=== PATIENT | male | born 1995 | race Caucasian/White ===

== ENCOUNTER 2018-10-21 00:40 | Inpatient (IN) | payer BC ==
--- NOTE | 2018-10-21 01:59 | ED ---
Psych HPI - General Source: patient, family Mode of arrival: ambulatory <Arti Joyce - Last Filed: 10/21/18 04:25> <Michell Greene - Last Filed: 10/21/18 04:51> - General Chief Complaint: Psychiatric Symptoms Stated Complaint: Anxiety Time Seen by Provider: 10/21/18 01:13 - History of Present Illness Initial Comments: 23-year-old male with no past medical history presents today for chief complaint of anxiety and feeling as though he is going to . Patient states that he recently went on a cruise with friends to the [facility] and arrived home this past saturday. He states that the entire time him and his friends were drinking heavily. He states when he got to [place] off of the cruise ship began having extreme anxiety. He states he feels like he is going to . He states he has intense anxiety, impeding doom and fear of and dying. He denies taking any drugs. Patient states the symptoms have persisted. Family member in the room father as well as girlfriend states that he appears paranoid. Patient denies any fever, night sweats, denies current headache, dizziness, nausea, vomiting, diarrhea, abdominal pain, chest pain, dyspnea, dyspnea on exertion. Patient appears nontoxic. Patient does appear anxious. Remaining ROS (-), patient denies any recent back pain, muscle weakness, numbness or tingling, dysuria or hematuria, constipation or diarrhea, or visual changes, or any other complaints. (Arti Joyce) - Related Data Allergies Allergy/AdvReac Type Severity Reaction Status Date / Time No Known Allergies Allergy Verified 10/21/18 00:56 Review of Systems ROS Other: All systems not noted in ROS Statement are negative. <Arti Joyce - Last Filed: 10/21/18 04:25> ROS Other: All systems not noted in ROS Statement are negative. <Michell Greene - Last Filed: 10/21/18 04:51> ROS Statement: Those systems with pertinent positive or pertinent negative responses have been documented in the HPI. Past Medical History Past Medical History: No Reported History History of Any Multi-Drug Resistant Organisms: None Reported Past Surgical History: No Surgical Hx Reported Past Psychological History: No Psychological Hx Reported Smoking Status: Never smoker Past Alcohol Use History: Occasional Past Drug Use History: Marijuana <Arti Joyce - Last Filed: 10/21/18 04:25> General Exam Limitations: no limitations <Arti Joyce - Last Filed: 10/21/18 04:25> - General Exam Comments Initial Comments: General: The patient is awake and alert, in no distress, and does not appear ac utely ill. Eye: +3 mm pupils are equal, round and reactive to light, extra-ocular movements are intact. No nystagmus. There is normal conjunctiva bilaterally. No signs of icterus. Ears, nose, mouth and throat: There are moist mucous membranes and no oral lesions. Neck: The neck is supple, there is no tenderness or JVD. Cardiovascular: There is a regular rate and rhythm. No murmur, rub or gallop is appreciated. Respiratory: Lungs are clear to auscultation, respirations are non-labored, breath sounds are equal. No wheezes, stridor, rales, or rhonchi. Gastrointestinal: Soft, non-distended, non-tender abdomen without masses or org anomegaly noted. There is no rebound or guarding present. No CVA tenderness. Bowel sounds are unremarkable. Musculoskeletal: Normal ROM, no tenderness. Strength 5/5. Sensation intact. Radial pulses equal bilaterally 2+. Neurological: A&O x 3. CN II-XII intact, memory intact to immediately, intermediate and long line teamster recall. Able to follow simple verbal. Able to name a common object (pen). High quality, labial (pa) and lingual (la) speech. Low quality posterior pharynx/larynx (ga) voice sounds. Able to express general knowledge (days in a week). No hemineglect or inattention noted. Finger agnosia (-) and spatially oriented (identified L index finger touched R shoulder with L index finger). Light touch and temperature sensation present over the face, chest, abdomen, back, UE bilaterally, and LE bilaterally. Able to localize point during point localization b/l and extinction. No visible bulk atrophy, hypertrophy, fasciculations, or myoclonus of the UE or LE b/l. Full PROM in UE and LE b/l. Bilateral muscle strength 5/5 for the following muscles: deltoid, biceps, triceps, brachioradialis, wrist extensors/flexor, hip flexor, hip a bductors/adductors, hamstrings, quadriceps, feet dorsiflexors/plantar flexors. Finger to nose, finger to the examiners finger, and heel to giordano coordinated and accurate b/l. Coordinated and even demonstration of hand flip, finger to thumb, and toe tap b/l. Gait is coordinated and even in stride.(-) pronator drift. No nuchal rigidity. Skin: Skin is warm and dry and no rashes or lesions are noted. Sun burn on skin. Psychiatric: Cooperative, appropriate mood & affect, normal judgment. (Arti Joyce) Course Vital Signs 10/21/18 00:52 Temperature 98.3 F Pulse Rate 111 H Respiratory 16 Rate Blood Pressure 163/86 O2 Sat by Pulse 100 Oximetry Medical Decision Making - Lab Data Result diagrams: 10/21/18 02:15 10/21/18 02:15 <Arti Joyce - Last Filed: 10/21/18 04:25> - Lab Data Result diagrams: 10/21/18 02:15 10/21/18 02:15 <Michell Greene - Last Filed: 10/21/18 04:51> - Medical Decision Making 23yo males presenting with anxiety, impeding doom. Pt states these symptoms come and go. APpear to be consistent with panic attacks. Pt dehydrated on laboratory studies. Patient given IVF. CK pending, patient case discussed with Dr. Greene at 4:14AM-she will resume patient care. EPS at this point has evaluated patient--no further recommendations currently. Awaiting psychiatry decision making. (Arti Joyce) Patient care was signed out to me by Arti YU, patient with acute anxiety, possible psychosis after binge drinking on a cruise last week. patient evaluated by EPS and agreed to voluntary admission. (Michell Greene) - Lab Data Lab Results 10/21/18 10/21/18 10/21/18 Range/Units 02:15 02:15 02:15 WBC 10.0 (3.8-10.6) k/uL RBC 5.03 (4.30-5.90) m/uL Hgb 15.1 (13.0-17.5) gm/dL Hct 45.3 (39.0-53.0) % MCV 89.9 (80.0-100.0) fL MCH 30.0 (25.0-35.0) pg MCHC 33.4 (31.0-37.0) g/dL RDW 12.4 (11.5-15.5) % Plt Count 248 (150-450) k/uL Neutrophils % 78 % Lymphocytes % 15 % Monocytes % 5 % Eosinophils % 0 % Basophils % 0 % Neutrophils # 7.8 H (1.3-7.7) k/uL Lymphocytes # 1.5 (1.0-4.8) k/uL Monocytes # 0.5 (0-1.0) k/uL Eosinophils # 0.0 (0-0.7) k/uL Basophils # 0.0 (0-0.2) k/uL Sodium 139 (137-145) mmol/L Potassium 3.8 (3.5-5.1) mmol/L Chloride 101 (98-107) mmol/L Carbon Dioxide 25 (22-30) mmol/L Anion Gap 13 mmol/L BUN 14 (9-20) mg/dL Creatinine 0.82 (0.66-1.25) mg/dL Est GFR (CKD-EPI)AfAm >90 (>60 ml/min/1.73 sqM) Est GFR (CKD-EPI)NonAf >90 (>60 ml/min/1.73 sqM) Glucose 89 (74-99) mg/dL Calcium 9.7 (8.4-10.2) mg/dL Total Bilirubin 1.6 H (0.2-1.3) mg/dL AST 43 (17-59) U/L ALT 68 (21-72) U/L Alkaline Phosphatase 86 (38-126) U/L Creatine Kinase (55-170) U/L Troponin I <0.012 (0.000-0.034) ng/mL Total Protein 7.6 (6.3-8.2) g/dL Albumin 4.8 (3.5-5.0) g/dL TSH 2.170 (0.465-4.680) mIU/L Urine Color Urine Appearance (Clear) Urine pH (5.0-8.0) Ur Specific [place] (1.001-1.035) Urine Protein (Negative) Urine Glucose (UA) (Negative) Urine Ketones (Negative) Urine Blood (Negative) Urine Nitrite (Negative) Urine Bilirubin (Negative) Urine Urobilinogen (<2.0) mg/dL Ur Leukocyte Esterase (Negative) Urine Opiates Screen (NotDetected) Ur Oxycodone Screen (NotDetected) Urine Methadone Screen (NotDetected) Ur Propoxyphene Screen (NotDetected) Ur Barbiturates Screen (NotDetected) U Tricyclic Antidepress (NotDetected) Ur Phencyclidine Scrn (NotDetected) Ur Amphetamines Screen (NotDetected) U Methamphetamines Scrn (NotDetected) U Benzodiazepines Scrn (NotDetected) Urine Cocaine Screen (NotDetected) U Marijuana (THC) Screen (NotDetected) 10/21/18 10/21/18 Range/Units 02:15 02:24 WBC (3.8-10.6) k/uL RBC (4.30-5.90) m/uL Hgb (13.0-17.5) gm/dL Hct (39.0-53.0) % MCV (80.0-100.0) fL MCH (25.0-35.0) pg MCHC (31.0-37.0) g/dL RDW (11.5-15.5) % Plt Count (150-450) k/uL Neutrophils % % Lymphocytes % % Monocytes % % Eosinophils % % Basophils % % Neutrophils # (1.3-7.7) k/uL Lymphocytes # (1.0-4.8) k/uL Monocytes # (0-1.0) k/uL Eosinophils # (0-0.7) k/uL Basophils # (0-0.2) k/uL Sodium (137-145) mmol/L Potassium (3.5-5.1) mmol/L Chloride (98-107) mmol/L Carbon Dioxide (22-30) mmol/L Anion Gap mmol/L BUN (9-20) mg/dL Creatinine (0.66-1.25) mg/dL Est GFR (CKD-EPI)AfAm (>60 ml/min/1.73 sqM) Est GFR (CKD-EPI)NonAf (>60 ml/min/1.73 sqM) Glucose (74-99) mg/dL Calcium (8.4-10.2) mg/dL Total Bilirubin (0.2-1.3) mg/dL AST (17-59) U/L ALT (21-72) U/L Alkaline Phosphatase (38-126) U/L Creatine Kinase 348 H (55-170) U/L Troponin I (0.000-0.034) ng/mL Total Protein (6.3-8.2) g/dL Albumin (3.5-5.0) g/dL TSH (0.465-4.680) mIU/L Urine Color Yellow Urine Appearance Clear (Clear) Urine pH 5.5 (5.0-8.0) Ur Specific [place] 1.014 (1.001-1.035) Urine Protein Negative (Negative) Urine Glucose (UA) Negative (Negative) Urine Ketones 3+ H (Negative) Urine Blood Negative (Negative) Urine Nitrite Negative (Negative) Urine Bilirubin Negative (Negative) Urine Urobilinogen <2.0 (<2.0) mg/dL Ur Leukocyte Esterase Negative (Negative) Urine Opiates Screen Not Detected (NotDetected) Ur Oxycodone Screen Not Detected (NotDetected) Urine Methadone Screen Not Detected (NotDetected) Ur Propoxyphene Screen Not Detected (NotDetected) Ur Barbiturates Screen Not Detected (NotDetected) U Tricyclic Antidepress Not Detected (NotDetected) Ur Phencyclidine Scrn Not Detected (NotDetected) Ur Amphetamines Screen Not Detected (NotDetected) U Methamphetamines Scrn Not Detected (NotDetected) U Benzodiazepines Scrn Not Detected (NotDetected) Urine Cocaine Screen Not Detected (NotDetected) U Marijuana (THC) Screen Not Detected (NotDetected) - EKG Data EKG Comments: Ventricular rate 95 bpm, [place] interval 130 ms, QRS duration 96 most seconds, QT/QTC 376/472 ms, this is normal sinus rhythm with premature supraventricular complexes. No ST elevation or depression. No specific T-wave inversion. EKG interpretted by myself as well as Dr. Greene (Arti Joyce) Disposition <Arti Joyce - Last Filed: 10/21/18 04:25> Is patient prescribed a controlled substance at d/c from ED?: No <Greene,Michell P - Last Filed: 10/21/18 04:51> Clinical Impression: Acute anxiety Disposition: TRANSFER TO PSYCH HOSP/UNIT Condition: Stable Referrals: None,Stated [Primary Care Provider] - 1-2 days
[2018-10-21 02:35] LABS: ALT 68 U/L (21-72); AST 43 U/L (17-59); Albumin 4.8 g/dL (3.5-5.0); Alkaline Phosphatase 86 U/L (38-126); Anion Gap 13 mmol/L; Blood Urea Nitrogen 14 mg/dL (9-20); Calcium 9.7 mg/dL (8.4-10.2); Carbon Dioxide 25 mmol/L (22-30); Chloride 101 mmol/L (98-107); Glucose 89 mg/dL (74-99); Potassium 3.8 mmol/L (3.5-5.1); Sodium 139 mmol/L (137-145); Total Bilirubin 1.6 mg/dL (0.2-1.3); Total Protein 7.6 g/dL (6.3-8.2)
[2018-10-21 02:54] LABS: Appearance,Urine Clear (Clear); Bilirubin,Urine Negative (Negative); Blood,Urine Negative (Negative); Color,Urine Yellow; Glucose,Urine (UA) Negative (Negative); Ketones,Urine 3+ (Negative); Leukocyte Esterase,Urine Negative (Negative); Nitrite,Urine Negative (Negative); PH, Urine 5.5 (5.0-8.0); Protein,Urine Negative (Negative); Specific Gravity,Urine 1.014 (1.001-1.035); Urobilinogen,Urine <2.0 mg/dL (<2.0)
[2018-10-21 03:02] LABS: Basophils % (A) 0 %; Eosinophils % (A) 0 %; HCT 45.3 % (39.0-53.0); HGB 15.1 gm/dL (13.0-17.5); Lymphocytes # (A) 1.5 k/uL (1.0-4.8); Lymphocytes % (A) 15 %; MCHC 33.4 g/dL (31.0-37.0); MCV 89.9 fL (80.0-100.0); Mean Platelet Volume 6.8; Monocytes # (A) 0.5 k/uL (0-1.0); Monocytes % (A) 5 %; Neutrophils # (A) 7.8 k/uL (1.3-7.7); Neutrophils % (A) 78 %; Platelet Count 248 k/uL (150-450); RBC 5.03 m/uL (4.30-5.90); RDW 12.4 % (11.5-15.5)
[2018-10-21 03:16] LABS: Amphetamine Screen,Urine Not Detected (NotDetected); Barbiturate Screen,Urine Not Detected (NotDetected); Benzodiazepines Screen,Urine Not Detected (NotDetected); Cocaine Screen,Urine Not Detected (NotDetected); Methadone Screen, Urine Not Detected (NotDetected); Opiate Screen,Urine Not Detected (NotDetected); Oxycodone Screen, Urine Not Detected (NotDetected); Phencyclidine Screen,Urine Not Detected (NotDetected); Tricyclic Antidepressant,Urine Not Detected (NotDetected); Urn Cannabinoid Scrn Not Detected (NotDetected)
[2018-10-21] MEDS ORDERED: SODIUM CHLORIDE 0.9% 1,000 ML IV ONE ×2 (03:52→04:10)
[2018-10-21] MEDS ORDERED: LORazepam 1 MG TAB PO STA (04:50)
[2018-10-21] MEDS ORDERED: MAG HYDROX/AL HYDROX/SIMETH 30 ML CUP PO PRN (05:23)
[2018-10-21] MEDS ORDERED: ZIPRASIDONE 20 MG VIAL IM PRN (05:23)
[2018-10-21 06:50] VITALS: BMI 24.0
[2018-10-21 08:47] LABS: Cholesterol 159 mg/dL (<200); HDL Cholesterol 48 mg/dL (40-60); LDL Cholesterol,Calculated 90 mg/dL (0-99); Triglycerides 106 mg/dL (<150)
--- NOTE | 2018-10-21 10:28 | P.HP ---
Psychiatric H&P - . H&P Date: 10/21/18 History & Physical: Allergies Allergy/AdvReac Type Severity Reaction Status Date / Time No Known Allergies Allergy Verified 10/21/18 06:53 Vital Signs Temp 98.2 F 10/21/18 06:40 Pulse 100 10/21/18 06:40 Resp 20 10/21/18 06:40 BP 131/86 10/21/18 06:40 Pulse Ox 99 10/21/18 06:40 Intake & Output 10/20/18 10/21/18 10/21/18 18:59 06:59 18:59 Weight 78.925 kg Laboratory Last Values WBC 10.0 k/uL (3.8-10.6) 10/21/18 02:15 RBC 5.03 m/uL (4.30-5.90) 10/21/18 02:15 Hgb 15.1 gm/dL (13.0-17.5) 10/21/18 02:15 Hct 45.3 % (39.0-53.0) 10/21/18 02:15 MCV 89.9 fL (80.0-100.0) 10/21/18 02:15 MCH 30.0 pg (25.0-35.0) 10/21/18 02:15 MCHC 33.4 g/dL (31.0-37.0) 10/21/18 02:15 RDW 12.4 % (11.5-15.5) 10/21/18 02:15 Plt Count 248 k/uL (150-450) 10/21/18 02:15 Neutrophils % 78 % 10/21/18 02:15 Lymphocytes % 15 % 10/21/18 02:15 Monocytes % 5 % 10/21/18 02:15 Eosinophils % 0 % 10/21/18 02:15 Basophils % 0 % 10/21/18 02:15 Neutrophils # 7.8 k/uL (1.3-7.7) H 10/21/18 02:15 Lymphocytes # 1.5 k/uL (1.0-4.8) 10/21/18 02:15 Monocytes # 0.5 k/uL (0-1.0) 10/21/18 02:15 Eosinophils # 0.0 k/uL (0-0.7) 10/21/18 02:15 Basophils # 0.0 k/uL (0-0.2) 10/21/18 02:15 Sodium 139 mmol/L (137-145) 10/21/18 02:15 Potassium 3.8 mmol/L (3.5-5.1) 10/21/18 02:15 Chloride 101 mmol/L (98-107) 10/21/18 02:15 Carbon Dioxide 25 mmol/L (22-30) 10/21/18 02:15 Anion Gap 13 mmol/L 10/21/18 02:15 BUN 14 mg/dL (9-20) 10/21/18 02:15 Creatinine 0.82 mg/dL (0.66-1.25) 10/21/18 02:15 Est GFR (CKD-EPI)AfAm >90 (>60 ml/min/1.73 sqM) 10/21/18 02:15 Est GFR (CKD-EPI)NonAf >90 (>60 ml/min/1.73 sqM) 10/21/18 02:15 Glucose 89 mg/dL (74-99) 10/21/18 02:15 Calcium 9.7 mg/dL (8.4-10.2) 10/21/18 02:15 Total Bilirubin 1.6 mg/dL (0.2-1.3) H 10/21/18 02:15 AST 43 U/L (17-59) 10/21/18 02:15 ALT 68 U/L (21-72) 10/21/18 02:15 Alkaline Phosphatase 86 U/L (38-126) 10/21/18 02:15 Creatine Kinase 348 U/L (55-170) H 10/21/18 02:15 Troponin I <0.012 ng/mL (0.000-0.034) 10/21/18 02:15 Total Protein 7.6 g/dL (6.3-8.2) 10/21/18 02:15 Albumin 4.8 g/dL (3.5-5.0) 10/21/18 02:15 Triglycerides 106 mg/dL (<150) 10/21/18 02:15 Cholesterol 159 mg/dL (<200) 10/21/18 02:15 LDL Cholesterol, Calc 90 mg/dL (0-99) 10/21/18 02:15 HDL Cholesterol 48 mg/dL (40-60) 10/21/18 02:15 TSH 2.170 mIU/L (0.465-4.680) 10/21/18 02:15 Urine Color Yellow 10/21/18 02:24 Urine Appearance Clear (Clear) 10/21/18 02:24 Urine pH 5.5 (5.0-8.0) 10/21/18 02:24 Ur Specific [place] 1.014 (1.001-1.035) 10/21/18 02:24 Urine Protein Negative (Negative) 10/21/18 02:24 Urine Glucose (UA) Negative (Negative) 10/21/18 02:24 Urine Ketones 3+ (Negative) H 10/21/18 02:24 Urine Blood Negative (Negative) 10/21/18 02:24 Urine Nitrite Negative (Negative) 10/21/18 02:24 Urine Bilirubin Negative (Negative) 10/21/18 02:24 Urine Urobilinogen <2.0 mg/dL (<2.0) 10/21/18 02:24 Ur Leukocyte Esterase Negative (Negative) 10/21/18 02:24 Urine Opiates Screen Not Detected (NotDetected) 10/21/18 02:24 Ur Oxycodone Screen Not Detected (NotDetected) 10/21/18 02:24 Urine Methadone Screen Not Detected (NotDetected) 10/21/18 02:24 Ur Propoxyphene Screen Not Detected (NotDetected) 10/21/18 02:24 Ur Barbiturates Screen Not Detected (NotDetected) 10/21/18 02:24 U Tricyclic Antidepress Not Detected (NotDetected) 10/21/18 02:24 Ur Phencyclidine Scrn Not Detected (NotDetected) 10/21/18 02:24 Ur Amphetamines Screen Not Detected (NotDetected) 10/21/18 02:24 U Methamphetamines Scrn Not Detected (NotDetected) 10/21/18 02:24 U Benzodiazepines Scrn Not Detected (NotDetected) 10/21/18 02:24 Urine Cocaine Screen Not Detected (NotDetected) 10/21/18 02:24 U Marijuana (THC) Screen Not Detected (NotDetected) 10/21/18 02:24 Assessment and Plan Assessment: 23-year-old male with no past medical history presents today for chief complaint of anxiety and feeling as though he is going to . Patient states that he recently went on a cruise with friends to the [facility] and arrived home this past Saturday. He states that the entire time him and his friends were drinking heavily. He states when he got to [place] off of the cruise ship began having extreme anxiety. He states he feels like he is going to . He states he has intense anxiety, impeding doom and fear of and dying. He denies taking any drugs. Patient states the symptoms have persisted. Family member in the room father as well as girlfriend states that he appears paranoid. Patient denies any fever, night sweats, denies current headache, dizziness, nausea, vomiting, diarrhea, abdominal pain, chest pain, dyspnea, dyspnea on exertion. Patient appears nontoxic. Patient does appear anxious. Remaining ROS (-), patient denies any recent back pain, muscle weakness, numbness or tingling, dysuria or hematuria, constipation or diarrhea, or visual changes, or any other complaints. - Related Data Allergies Allergy/AdvReac Type Severity Reaction Status Date / Time No Known Allergies Allergy Verified 10/21/18 00:56 Past Medical History Past Medical History: No Reported History History of Any Multi-Drug Resistant Organisms: None Reported Past Surgical History: No Surgical Hx Reported Past Psychological History: No Psychological Hx Reported Smoking Status: Never smoker Past Alcohol Use History: Occasional Past Drug Use History: Marijuana Family Mental Health:sister anxiety and sometimes anxiety; whole family drinks alcohol Musculoskeletal Examination - Abnormal/Involuntary Movements: [none] Strength: [greater than antigravity (greater than/equal to 3/5) in all extremities:] Muscle Tone: [no impairment] Gait: [grossly normal Station: [grossly normal Mental Status Examination - this is a pleasant 23-year-old single male who lives with his girlfriend and [facility]. He recently was on a trip on a cruise October 13 worry he drank alcohol excessively and has had problems withdrawn from the alcohol. He states she's always had depression and the alcohol binge did not help his overall mental status. He is actively working and his high school and college grades were A's in nature. 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 He is pleasant to talk to very good historian and unreliable. General Appearance: [ casual, appears stated age Speech/Language: [ slow, hesitant, halting, expressive, soft] Attitude/Behavior: [cooperative] Mood: [ depressed, anxious, elated, irritable, angry, fearful, hopelessness, other] Affect: [full range, labile ] Orientation: [time, person, place situation] Thought Content: [wnl Risk Factors: [thoughts of suicidal (ideations, plan) Perception: [ hallucinations (auditory and visual Thought Processes: [ concrete, circumstantial, tangential] Concentration/Attention Span: [wnl] [Per observation and interview with the patient] Recent Memory: [wnl] [ 3 out of 3 in 3 minutes] Remote Memory: [wnl] [past events, as related history] Intelligence: [ average] [based on history, based on vocabulary, syntax, grammar, and content] Judgement: [ fair] [per patient's behavior/history of present illness] Insight: [ fair] [understanding severity of illness/history of present illness] Admitting Diagnosis: [Major depressive disorder single episode severe in nature; alcohol use disorder severe in nature has now detoxed the last 3 days which is created auditory and visual hallucinations.] Patient Strengths - Personal Skills: [x] Achievements: [x] Steady employment/financial stability: [x] Housing stability: [x] Able to vocalize needs: [x] Values and traditions: [x] Motivation, determination, readiness for change: [x] Setting and pursuing goals, hopes, dreams, aspirations: [x] Resources - social, interpersonal, monetary: [x] Interpersonal relationships and supports available - family, relatives, friends: [x] Cultural/spiritual/rastafari and community involvement: [x] Other: [] Patient Limitations: [medication, non-compliance, pathological/unsupported environment, no interests, intellectual impairment, complicated medical illness, legal issues, lack of social supports, other] Initial Plan of Care: [He is admitted on a formal voluntary to [address] [place] [address]. He will be evaluated by medicine, psychiatry, nursing staff, social work and occupational therapy. He will be placed on 15 minute checks and usual protocol for [facility] therapeutic environment. He'll be included into going to groups and he needs to take his medication as ordered. He'll be started on Effexor 37.5 mg Xr, Lamictal 25 mg, naltrexone 50 mg AT BEDTIME.] Estimated Length of Stay: [5 days] Initial Discharge Plan: [home,referred to therapist, Prognosis: [good] Justification for Inpatient Hospitalization - [Hallucinations, delusions, anxiety, depression resulting in significant loss of functioning.] [Dangerous to self, others, or property with need for controlled environment.] [Emotional or behavioral conditions and complications requiring 24 hour medical and nursing care.] [Need for special drug therapy, or other therapeutic program requiring continuous hospitalization.] [Failure of social or occupational functioning.] [Inability to meet basic life and health needs.] (1) Major depressive disorder Current Visit: Yes Status: Acute Priority: High Code(s): F32.9 - MAJOR DEPRESSIVE DISORDER, SINGLE EPISODE, UNSPECIFIED SNOMED Code(s): 825189709 Time with Patient: Greater than 30
[2018-10-21] MEDS: LORazepam 1 MG TAB PO PRN ×2 (12:12→19:55)
[2018-10-21 15:56] LABS: Hemoglobin A1C 5.3 % (4.0-6.0)
--- NOTE | 2018-10-21 16:12 | P.HPMEDMHU ---
History of Present Illness H&P Date: 10/21/18 Chief Complaint: confusion Patient is a 23 yo CM with no known past medical history who has been admitted to the mental health unit. Asked to evaluate the patient for medical H and P. Patient seen and examined. He denies any recent cough, cold, fever, flu, nausea, vomiting, diarrhea, or constipation. He has not had any dysuria. He states that he was on increased she had and underwent a been drinking episode and then became anxious and was worried he was given dye. He typically does not drink to this level of excess. He did have a [place] that is since resolved. He also reports poor sleep for the last several days. He is having problems falling asleep but not staying asleep. Review of Systems Pertinent positives and negatives as discussed in HPI, a complete review of systems was performed and all other systems are negative. Past Medical History Past Medical History: No Reported History History of Any Multi-Drug Resistant Organisms: None Reported Past Surgical History: No Surgical Hx Reported Past Anesthesia/Blood Transfusion Reactions: No Reported Reaction Smoking Status: Never smoker Past Alcohol Use History: Occasional Past Drug Use History: Marijuana - Past Family History Father Family Medical History: Hypertension grandmother Family Medical History: Diabetes Mellitus Medications and Allergies Home Medications Medication Instructions Recorded Confirmed Type No Known Home Medications 10/21/18 10/21/18 History Allergies Allergy/AdvReac Type Severity Reaction Status Date / Time No Known Allergies Allergy Verified 10/21/18 06:53 Physical Exam Osteopathic Statement: *. No significant issues noted on an osteopathic structural exam other than those noted in the History and Physical/Consult. Vitals: Vital Signs Temp Pulse Pulse Resp BP BP Pulse Ox 10/21/18 06:40 98.2 F 100 20 131/86 99 10/21/18 00:52 98.3 F 111 H 16 163/86 100 Intake and Output 10/21/18 10/21/18 10/21/18 06:59 14:59 22:59 Other: Weight 78.925 kg General: non toxic, no distress, appears at stated age, normal weight Derm: no unusual rashes/lesions no unusual ecchymoses, warm, dry Head: atraumatic, normocephalic, symmetric Eyes: EOMI, no lid lag, anicteric sclera, pupils equal round reactive to light ENT: Nose and ears atraumatic, no thrush, no pharyngeal erythema Neck: No thyromegaly, no cervical lymphadenopathy, trachea midline, supple Mouth: no lip lesion, mucus membranes moist Cardiovascular: S1S2 reg, no murmur, positive posterior tibial pulse bilateral, no edema, capillary refill less than 2 seconds Lungs: CTA bilateral, no rhonchi, no rales , no accessory muscle use Abdominal: soft, nontender to palpation, no guarding, no appreciable organomegaly, normal bowel sounds Ext: no gross muscle atrophy, muscle strength 5 out of 5 in all 4 extremities grossly, no contractures, Neuro: CN II-XI grossly intact, light touch intact all 4 extremities, finger to nose within normal limits, Psych: Alert, oriented, anxious Cranial Nerve Examination - Cranial Nerves Cranial Nerve II- Optic: Intact Cranial Nerve III- Oculomotor: Intact Cranial Nerve IV- Trochlear: Intact Cranial Nerve V- Trigeminal: Intact Cranial Nerve - Abducens: Intact Cranial Nerve VII- Facial: Intact Cranial Nerve VIII- Auditory: Intact Cranial Nerve IX- Glossopharyngeal: Intact Cranial Nerve X- Vagus: Intact Cranial Nerve XI- Accessory: Intact Cranial Nerve XII- Hypoglossal: Intact Results CBC & Chem 7: 10/21/18 02:15 10/21/18 02:15 Labs: Abnormal Lab Results - Last 24 Hours (Table) 10/21/18 10/21/18 10/21/18 Range/Units 02:15 02:15 02:15 Neutrophils # 7.8 H (1.3-7.7) k/uL Total Bilirubin 1.6 H (0.2-1.3) mg/dL Creatine Kinase 348 H (55-170) U/L Urine Ketones (Negative) 10/21/18 Range/Units 02:24 Neutrophils # (1.3-7.7) k/uL Total Bilirubin (0.2-1.3) mg/dL Creatine Kinase (55-170) U/L Urine Ketones 3+ H (Negative) Thrombosis Risk Factor Assmnt - DVT/VTE Prophylaxis DVT/VTE Prophylaxis: Low risk, early ambulation encouraged - Choose All That Apply Any of the Below Risk Factors Present?: No Other Risk Factors: No Other congenital or acquired thrombophilia - If yes, enter type in comment: No Thrombosis Risk Factor Assessment Level: Very Low Risk Assessment and Plan Assessment: Elevated bilirubin, suspect due to recent alcohol ingestion - repeat in AM - if remains elevated consider further eval as outpatient. depression - your psych management Thank you for allowing us to participate in the care of this patient. We will follow peripherally. Do not hesitate to contact us with questions. Someone can be reached from the [facility] hospitalist group at all hours of the day at [phone].
[2018-10-21] MEDS: NALTREXONE HCL 50 MG TAB PO SCH (19:55)
[2018-10-21] MEDS ORDERED: lamoTRIgine 25 MG TAB PO SCH (21:00)
[2018-10-21] MEDS ORDERED: VENLAFAXINE HCL ER 37.5 MG CAP PO SCH (21:00)
[2018-10-22] MEDS: LORazepam 1 MG TAB PO PRN ×2 (07:02→18:54)
[2018-10-22 09:23] LABS: ALT 57 U/L (21-72); AST 34 U/L (17-59); Albumin 4.6 g/dL (3.5-5.0); Alkaline Phosphatase 65 U/L (38-126); Anion Gap 9 mmol/L; Blood Urea Nitrogen 8 mg/dL (9-20); Calcium 9.9 mg/dL (8.4-10.2); Carbon Dioxide 28 mmol/L (22-30); Chloride 104 mmol/L (98-107); Glucose 146 mg/dL (74-99); Potassium 3.7 mmol/L (3.5-5.1); Sodium 141 mmol/L (137-145); Total Protein 7.1 g/dL (6.3-8.2)
--- NOTE | 2018-10-22 12:24 | P.PN ---
Subjective Progress Note Date: 10/22/18 Principal diagnosis: Major depressive disorder single episode severe in nature; alcohol use disorder severe in nature has now detoxed the last 3 days which is created auditory and v isual hallucinations this is a pleasant 23-year-old single male who lives with his girlfriend and [facility]. He recently was on a trip on a cruise October 13 worry he drank alcohol excessively and has had problems withdrawn from the alcohol. He states she's always had depression and the alcohol binge did not help his overall mental status. He is actively working and his high school and college grades were A's in nature. 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 He is pleasant to talk to very good historian and unreliable He was hallucinating on the plan and psychosis. Objective - Vital Signs Vital signs: Vital Signs Temp 98.1 F 10/22/18 06:49 Pulse 53 L 10/22/18 06:49 Resp 18 10/22/18 06:49 BP 139/89 10/22/18 06:49 Pulse Ox 99 10/21/18 06:40 - Labs CBC & Chem 7: 10/21/18 02:15 10/22/18 08:48 Labs: Abnormal Lab Results - Last 24 Hours (Table) 10/22/18 Range/Units 08:48 BUN 8 L (9-20) mg/dL Glucose 146 H (74-99) mg/dL Assessment and Plan Assessment: 23-year-old male with no past medical history presents today for chief complaint of anxiety and feeling as though he is going to . Patient states that he recently went on a cruise with friends to the [facility] and arrived home this past Saturday. He states that the entire time him and his friends were drinking heavily. He states when he got to [place] off of the cruise ship began having extreme anxiety. He states he feels like he is going to . He states he has intense anxiety, impeding doom and fear of and dying. He denies taking any drugs. Patient states the symptoms have persisted. Family member in the room father as well as girlfriend states that he appears paranoid. Patient denies any fever, night sweats, denies current headache, dizziness, nausea, vomiting, diarrhea, abdominal pain, chest pain, dyspnea, dyspnea on exertion. Patient appears nontoxic. Patient does appear anxious. Remaining ROS (-), patient denies any recent back pain, muscle weakness, numbness or tingling, dysuria or hematuria, constipation or diarrhea, or visual changes, or any other complaints. - Related Data Allergies Allergy/AdvReac Type Severity Reaction Status Date / Time No Known Allergies Allergy Verified 10/21/18 00:56 Past Medical History Past Medical History: No Reported History History of Any Multi-Drug Resistant Organisms: None Reported Past Surgical History: No Surgical Hx Reported Past Psychological History: No Psychological Hx Reported Smoking Status: Never smoker Past Alcohol Use History: Occasional Past Drug Use History: Marijuana Family Mental Health:sister anxiety and sometimes anxiety; whole family drinks alcohol Musculoskeletal Examination - Abnormal/Involuntary Movements: [none] Strength: [greater than antigravity (greater than/equal to 3/5) in all extremities:] Muscle Tone: [no impairment] Gait: [grossly normal Station: [grossly normal Mental Status Examination - General Appearance: [ casual, appears stated age Speech/Language: [ slow, hesitant, halting, expressive, soft] Attitude/Behavior: [cooperative] Mood: [ depressed, anxious, elated, irritable, angry, fearful, hopelessness, other] Affect: [full range, labile ] Orientation: [time, person, place situation] Thought Content: [wnl Risk Factors: [thoughts of suicidal-remains suicidal (ideation, plan) Perception: [ hallucinations (auditory and visual Thought Processes: [ concrete, circumstantial, tangential] Concentration/Attention Span: [wnl] [Per observation and interview with the patient] Recent Memory: [wnl] [ 3 out of 3 in 3 minutes] Remote Memory: [wnl] [past events, as related history] Intelligence: [ average] [based on history, based on vocabulary, syntax, grammar, and content] Judgement: [ fair] [per patient's behavior/history of present illness] Insight: [ fair] [understanding severity of illness/history of present illness] Admitting Diagnosis: [Major depressive disorder single episode severe in nature; alcohol use disorder severe in nature has now detoxed the last 3 days which is created auditory and visual hallucinations.] Patient Strengths - Personal Skills: [x] Achievements: [x] Steady employment/financial stability: [x] Housing stability: [x] Able to vocalize needs: [x] Values and traditions: [x] Motivation, determination, readiness for change: [x] Setting and pursuing goals, hopes, dreams, aspirations: [x] Resources - social, interpersonal, monetary: [x] Interpersonal relationships and supports available - family, relatives, friends: [x] Cultural/spiritual/synagogue and community involvement: [x] Other: [] Patient Limitations: [medication, non-compliance, pathological/unsupported environment, no interests, intellectual impairment, complicated medical illness, legal issues, lack of social supports, other] Initial Plan of Care: [He is admitted on a formal voluntary to 3 [facility]. He will be evaluated by medicine, psychiatry, nursing staff, social work and occupational therapy. He will be placed on 15 minute checks and usual protocol for chiang milieu therapeutic environment. He'll be included into going to groups and he needs to take his medication as ordered. He'll be started on Effexor 37.5 mg Xr, Lamictal 25 mg, naltrexone 50 mg AT BEDTIME.] 10/22/2018: increase effexor 75 mg xr; lamictal 75 mg po qhs; add invega 3mg po qhs for psychosis 15 minute checks and usual protocol for the unit. Estimated Length of Stay: [5 days] Initial Discharge Plan: [home,referred to therapist, Prognosis: [good] Justification for Inpatient Hospitalization - [Hallucinations, delusions, anxiety, depression resulting in significant loss of functioning.] [Dangerous to self, others, or property with need for controlled environment.] [Emotional or behavioral conditions and complications requiring 24 hour medical and nursing care.] [Need for special drug therapy, or other therapeutic program requiring continuous hospitalization.] [Failure of social or occupational functioning.] [Inability to meet basic life and health needs.] (1) Major depressive disorder Current Visit: Yes Status: Acute Priority: High Code(s): F32.9 - MAJOR DEPRESSIVE DISORDER, SINGLE EPISODE, UNSPECIFIED SNOMED Code(s): 923634536 Time with Patient: Less than 30
[2018-10-22] MEDS: ACETAMINOPHEN TAB 325 MG TAB PO PRN (17:06)
[2018-10-22] MEDS ORDERED: lamoTRIgine 25 MG TAB PO SCH (21:00)
[2018-10-22] MEDS ORDERED: VENLAFAXINE HCL ER 75 MG CAP PO SCH (21:00)
[2018-10-22] MEDS: PALIPERIDONE 3 MG TAB.ER.24 PO SCH (21:36)
[2018-10-22] MEDS: NALTREXONE HCL 50 MG TAB PO SCH (21:36)
[2018-10-22] MEDS ORDERED: ZIPRASIDONE 20 MG CAP PO STA (22:32)
[2018-10-23] MEDS: LORazepam 1 MG TAB PO PRN ×2 (06:35→16:42)
[2018-10-23 09:30] LABS: ALT 57 U/L (21-72); AST 31 U/L (17-59); Albumin 4.8 g/dL (3.5-5.0); Alkaline Phosphatase 67 U/L (38-126); Anion Gap 11 mmol/L; Blood Urea Nitrogen 6 mg/dL (9-20); Calcium 10.1 mg/dL (8.4-10.2); Carbon Dioxide 30 mmol/L (22-30); Chloride 103 mmol/L (98-107); Glucose 90 mg/dL (74-99); Potassium 3.7 mmol/L (3.5-5.1); Sodium 144 mmol/L (137-145); Total Bilirubin 1.2 mg/dL (0.2-1.3); Total Protein 7.7 g/dL (6.3-8.2)
--- NOTE | 2018-10-23 15:29 | MR ---
EXAMINATION TYPE: MR brain wo/w con DATE OF EXAM: 10/23/2018 COMPARISON: NONE HISTORY: recent acute confusion TECHNIQUE: Multiplanar, multisequence images of the brain and brainstem is performed without and with IV contras t, utilizing 7.5 mL intravenous Gadavist . FINDINGS: Diffusion weighted images demonstrate no evidence of a recent infarct or other diffusion ab normality. There is no extra-axial fluid collection or significant white matter signal abnormality. The ventricular system and cisternal spaces are normal in size and appearance. The brain volume is age appropriate. Midline structures demonstrate normal morphology. The craniocervical junction appears within normal limits. Post contrast images demonstrate no abnormal enhancement. The dural venous sinuses appear pa tent. The visualized sinuses are clear and the globes are intact. IMPRESSION: Unremarkable study. No suspicious finding is seen to account for patient's symptoms.
[2018-10-23] MEDS: VENLAFAXINE HCL ER 150 MG CAP PO SCH (20:24)
[2018-10-23] MEDS: NALTREXONE HCL 50 MG TAB PO SCH (20:24)
[2018-10-23] MEDS: PALIPERIDONE 3 MG TAB.ER.24 PO SCH (20:24)
[2018-10-23] MEDS ORDERED: lamoTRIgine 100 MG TAB PO SCH (21:00)
[2018-10-24] MEDS: LORazepam 1 MG TAB PO PRN ×3 (02:55→21:34)
--- NOTE | 2018-10-24 11:07 | P.PN ---
Subjective Progress Note Date: 10/23/18 Principal diagnosis: Major depressive disorder single episode severe in nature; alcohol use disorder severe in nature has now detoxed the last 3 days which is created auditory and v isual hallucinations this is a pleasant 23-year-old single male who lives with his girlfriend and [facility]. He recently was on a trip on a cruise October 13 worry he drank alcohol excessively and has had problems withdrawn from the alcohol. He states she's always had depression and the alcohol binge did not help his overall mental status. He is actively working and his high school and college grades were A's in nature. 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 He is pleasant to talk to very good historian and unreliable He was hallucinating on the plan and psychosis. Objective - Vital Signs Vital signs: Vital Signs Temp 97.9 F 10/23/18 06:24 Pulse 116 H 10/23/18 06:24 Resp 16 10/23/18 06:24 BP 129/92 10/23/18 06:24 Pulse Ox 99 10/21/18 06:40 - Labs CBC & Chem 7: 10/21/18 02:15 10/23/18 09:08 Labs: Abnormal Lab Results - Last 24 Hours (Table) 10/23/18 Range/Units 09:08 BUN 6 L (9-20) mg/dL Assessment and Plan Assessment: 23-year-old male with no past medical history presents today for chief complaint of anxiety and feeling as though he is going to . Patient states that he recently went on a cruise with friends to the [facility] and arrived home this past Saturday. He states that the entire time him and his friends were drinking heavi ly. He states when he got to [place] off of the cruise ship began having extreme anxiety. He states he feels like he is going to . He states he has intense anxiety, impeding doom and fear of and dying. He denies taking any drugs. Patient states the symptoms have persisted. Family member in the room father as well as girlfriend states that he appears paranoid. Patient denies any fever, night sweats, denies current headache, dizziness, nausea, vomiting, diarrhea, abdominal pain, chest pain, dyspnea, dyspnea on exertion. Patient appears nontoxic. Patient does appear anxious. Remaining ROS (-), patient denies any recent back pain, muscle weakness, numbness or tingling, dysuria or hematuria, constipation or diarrhea, or visual changes, or any other complaints. - Related Data Allergies Allergy/AdvReac Type Severity Reaction Status Date / Time No Known Allergies Allergy Verified 10/21/18 00:56 Past Medical History Past Medical History: No Reported History History of Any Multi-Drug Resistant Organisms: None Reported Past Surgical History: No Surgical Hx Reported Past Psychological History: No Psychological Hx Reported Smoking Status: Never smoker Past Alcohol Use History: Occasional Past Drug Use History: Marijuana Family Mental Health:sister anxiety and sometimes anxiety; whole family drinks alcohol Musculoskeletal Examination - Abnormal/Involuntary Movements: [none] Strength: [greater than antigravity (greater than/equal to 3/5) in all extremities:] Muscle Tone: [no impairment] Gait: [grossly normal Station: [grossly normal Mental Status Examination - General Appearance: [ casual, appears stated age Speech/Language: [ slow, hesitant, halting, expressive, soft] Attitude/Behavior: [cooperative] Mood: [ depressed, anxious, elated, irritable, angry, fearful, hopelessness, other] Affect: [full range, labile ] Orientation: [time, person, place situation] Thought Content: [wnl Risk Factors: [thoughts of suicidal-remains suicidal (ideation, plan) Perception: [ hallucinations (auditory and visual Thought Processes: [ concrete, circumstantial, tangential] Concentration/Attention Span: [wnl] [Per observation and interview with the patient] Recent Memory: [wnl] [ 3 out of 3 in 3 minutes] Remote Memory: [wnl] [past events, as related history] Intelligence: [ average] [based on history, based on vocabulary, syntax, grammar, and content] Judgement: [ fair] [per patient's behavior/history of present illness] Insight: [ fair] [understanding severity of illness/history of present illness] Admitting Diagnosis: [Major depressive disorder single episode severe in nature; alcohol use disorder severe in nature has now detoxed the last 3 days which is created auditory and visual hallucinations.] Patient Strengths - Personal Skills: [x] Achievements: [x] Steady employment/financial stability: [x] Housing stability: [x] Able to vocalize needs: [x] Values and traditions: [x] Motivation, determination, readiness for change: [x] Setting and pursuing goals, hopes, dreams, aspirations: [x] Resources - social, interpersonal, monetary: [x] Interpersonal relationships and supports available - family, relatives, friends: [x] Cultural/spiritual/restoration and community involvement: [x] Other: [] Patient Limitations: [medication, non-compliance, pathological/unsupported environment, no interests, intellectual impairment, complicated medical illness, legal issues, lack of social supports, other] Initial Plan of Care: [He is admitted on a formal voluntary to 3 [facility]. He will be evaluated by medicine, psychiatry, nursing staff, social work and occupational therapy. He will be placed on 15 minute checks and usual protocol for chiang milieu therapeutic environment. He'll be included into going to groups and he needs to take his medication as ordered. He'll be started on Effexor 37.5 mg Xr, Lamictal 25 mg, naltrexone 50 mg AT BEDTIME.] 10/22/2018: increase effexor 75 mg xr; lamictal 75 mg po qhs; add invega 3mg po qhs for psychosis 15 minute checks and usual protocol for the unit. Estimated Length of Stay: [5 days] Initial Discharge Plan: [home,referred to therapist, Prognosis: [good] Justification for Inpatient Hospitalization - [Hallucinations, delusions, anxiety, depression resulting in significant loss of functioning.] [Dangerous to self, others, or property with need for controlled environment.] [Emotional or behavioral conditions and complications requiring 24 hour medical and nursing care.] [Need for special drug therapy, or other therapeutic program requiring continuous hospitalization.] [Failure of social or occupational functioning.] [Inability to meet basic life and health needs.] (1) Major depressive disorder Current Visit: Yes Status: Acute Priority: High Code(s): F32.9 - MAJOR DEPRESSIVE DISORDER, SINGLE EPISODE, UNSPECIFIED SNOMED Code(s): 817321648
--- NOTE | 2018-10-24 14:03 | P.PN ---
Subjective Progress Note Date: 10/24/18 Principal diagnosis: Major depressive disorder single episode severe in nature; alcohol use disorder severe in nature has now detoxed the last 3 days which is created auditory and v isual hallucinations this is a pleasant 23-year-old single male who lives with his girlfriend and [facility]. He recently was on a trip on a cruise October 13 worry he drank alcohol excessively and has had problems withdrawn from the alcohol. He states she's always had depression and the alcohol binge did not help his overall mental status. He is actively working and his high school and college grades were A's in nature. 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 He is pleasant to talk to very good historian and unreliable He was hallucinating on the plan and psychosis. Objective - Vital Signs Vital signs: Vital Signs Temp 97.6 F 10/24/18 03:20 Pulse 153 H 10/24/18 03:20 Resp 20 10/24/18 03:20 BP 139/95 10/24/18 03:20 Pulse Ox 98 10/24/18 03:20 - Labs CBC & Chem 7: 10/21/18 02:15 10/23/18 09:08 Assessment and Plan Assessment: 23-year-old male with no past medical history presents today for chief complaint of anxiety and feeling as though he is going to . Patient states that he rec ently went on a cruise with friends to the [facility] and arrived home this past Saturday. He states that the entire time him and his friends were drinking heavily. He states when he got to [place] off of the cruise ship began having extreme anxiety. He states he feels like he is going to . He states he has intense anxiety, impeding doom and fear of and dying. He denies taking any drugs. Patient states the symptoms have persisted. Family member in the room father as well as girlfriend states that he appears paranoid. Patient denies any fever, night sweats, denies current headache, dizziness, nausea, vomiting, diarrhea, abdominal pain, chest pain, dyspnea, dyspnea on exertion. Patient appears nontoxic. Patient does appear anxious. Remaining ROS (-), patient denies any recent back pain, muscle weakness, numbness or tingling, dysuria or hematuria, constipation or diarrhea, or visual changes, or any other complaints. - Related Data Allergies Allergy/AdvReac Type Severity Reaction Status Date / Time No Known Allergies Allergy Verified 10/21/18 00:56 Past Medical History Past Medical History: No Reported History History of Any Multi-Drug Resistant Organisms: None Reported Past Surgical History: No Surgical Hx Reported Past Psychological History: No Psychological Hx Reported Smoking Status: Never smoker Past Alcohol Use History: Occasional Past Drug Use History: Marijuana Family Mental Health:sister anxiety and sometimes anxiety; whole family drinks alcohol Musculoskeletal Examination - Abnormal/Involuntary Movements: [none] Strength: [greater than antigravity (greater than/equal to 3/5) in all extremities:] Muscle Tone: [no impairment] Gait: [grossly normal Station: [grossly normal Mental Status Examination - General Appearance: [ casual, appears stated age Speech/Language: [ slow, hesitant, halting, expressive, soft] Attitude/Behavior: [cooperative] Mood: [ depressed, anxious, elated, irritable, angry, fearful, hopelessness, other] Affect: [full range, labile ] Orientation: [time, person, place situation] Thought Content: [wnl Risk Factors: [thoughts of suicidal-remains suicidal (ideation, plan) Perception: [ hallucinations (auditory and visual Thought Processes: [ concrete, circumstantial, tangential] Concentration/Attention Span: [wnl] [Per observation and interview with the patient] Recent Memory: [wnl] [ 3 out of 3 in 3 minutes] Remote Memory: [wnl] [past events, as related history] Intelligence: [ average] [based on history, based on vocabulary, syntax, grammar, and content] Judgement: [ fair] [per patient's behavior/history of present illness] Insight: [ fair] [understanding severity of illness/history of present illness] Admitting Diagnosis: [Major depressive disorder single episode severe in nature; alcohol use disorder severe in nature has now detoxed the last 3 days which is created auditory and visual hallucinations.] Patient Strengths - Personal Skills: [x] Achievements: [x] Steady employment/financial stability: [x] Housing stability: [x] Able to vocalize needs: [x] Values and traditions: [x] Motivation, determination, readiness for change: [x] Setting and pursuing goals, hopes, dreams, aspirations: [x] Resources - social, interpersonal, monetary: [x] Interpersonal relationships and supports available - family, relatives, friends: [x] Cultural/spiritual/presybeterian and community involvement: [x] Other: [] Patient Limitations: [medication, non-compliance, pathological/unsupported environment, no interests, intellectual impairment, complicated medical illness, legal issues, lack of social supports, other] Initial Plan of Care: [He is admitted on a formal voluntary to 3 [facility]. He will be evaluated by medicine, psychiatry, nursing staff, social work and occupational therapy. He will be placed on 15 minute checks and usual protocol for chiang milieu therapeutic environment. He'll be included into going to groups and he needs to take his medication as ordered. He'll be started on Effexor 37.5 mg Xr, Lamictal 25 mg, naltrexone 50 mg AT BEDTIME.] 10/22/2018: increase effexor 75 mg xr; lamictal 75 mg po qhs; add invega 3mg po qhs for psychosis 15 minute checks and usual protocol for the unit. 10/24/2018: Increase invega 6 mg po qhs and 1 hour family meeting Estimated Length of Stay: [5 days] Initial Discharge Plan: [home,referred to therapist, Prognosis: [good] (1) Major depressive disorder Current Visit: Yes Status: Acute Priority: High Code(s): F32.9 - MAJOR DEPRESSIVE DISORDER, SINGLE EPISODE, UNSPECIFIED SNOMED Code(s): 715443646 Time with Patient: Greater than 30
[2018-10-24] MEDS: MAGNESIUM HYDROXIDE 2,400 MG/10 ML CUP PO PRN (14:45)
--- NOTE | 2018-10-24 17:08 | P.PN ---
Progress Note - Text Progress Note Date: 10/24/18 As per nursing reports, patient last night presented to nursing station feeling anxious and restless. Patient admitted to feeling anxious and requested "a pill" to help him calm down. Patient would focus on one topic and continue to ask questions regarding that topic until redirected to another one from staff. Patient verbalized that he feels like he is going to because he used alcohol and that God is punishing him. Patient was observed pacing the hallway and holding his bible in his hands. Patient kept repeating to staff that he does not want to . Patient's pulse was taken in the 150's. Stat EKG was ordered which shows sinus tachycardia with frequent PVCs. This case was discussed with nursing today around 5 PM. Nursing reports that the patient's anxiety has subsided and patient has returned to baseline. The EKG performed was reviewed and showed sinus tachycardia with frequent PVCs, which can be seen in anxiety. Patient has a similar EKG from 10/21/2018. His symptoms were relieved with Ativan, which points towards anxiety causing his symptoms. At this time, patient had a SBP in the 140s and pulse was 114. Patient appeared calm as per RN and did not have any further episodes of anxiousness and restlessness with paranoia. We will continue to monitor the patient. Please contact us for any changes in mentation, for any chest pain/shortness of breath/palpitations/dizziness, or changes in vitals.
[2018-10-24] MEDS: VENLAFAXINE HCL ER 150 MG CAP PO SCH (20:37)
[2018-10-24] MEDS: lamoTRIgine 100 MG TAB PO SCH (20:37)
[2018-10-24] MEDS: NALTREXONE HCL 50 MG TAB PO SCH (20:37)
[2018-10-24] MEDS ORDERED: PALIPERIDONE 6 MG TAB.ER.24 PO SCH (21:00)
[2018-10-25] MEDS: LORazepam 1 MG TAB PO PRN ×3 (03:19→22:32)
[2018-10-25] MEDS: MAGNESIUM HYDROXIDE 2,400 MG/10 ML CUP PO PRN (15:23)
--- NOTE | 2018-10-25 15:36 | P.PN ---
Subjective Progress Note Date: 10/25/18 Principal diagnosis: Major depressive disorder single episode severe in nature; alcohol use disorder severe in nature has now detoxed the last 3 days which is created auditory and v isual hallucinations this is a pleasant 23-year-old single male who lives with his girlfriend and [facility]. He recently was on a trip on a cruise October 13 worry he drank alcohol excessively and has had problems withdrawn from the alcohol. He states she's always had depression and the alcohol binge did not help his overall mental status. He is actively working and his high school and college grades were A's in nature. 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 He is pleasant to talk to very good historian and unreliable He was hallucinating on the plan and psychosis. Objective - Vital Signs Vital signs: Vital Signs Temp 97.7 F 10/25/18 03:12 Pulse 116 H 10/25/18 11:07 Resp 16 10/25/18 03:12 BP 141/91 10/25/18 11:07 Pulse Ox 98 10/24/18 03:20 - Labs CBC & Chem 7: 10/21/18 02:15 10/23/18 09:08 Assessment and Plan Assessment: 23-year-old male with no past medical history presents today for chief complaint of anxiety and feeling as though he is going to . Patient states that he rec ently went on a cruise with friends to the [facility] and arrived home this past Saturday. He states that the entire time him and his friends were drinking heavily. He states when he got to [place] off of the cruise ship began having extreme anxiety. He states he feels like he is going to . He states he has intense anxiety, impeding doom and fear of and dying. He denies taking any drugs. Patient states the symptoms have persisted. Family member in the room father as well as girlfriend states that he appears paranoid. Patient denies any fever, night sweats, denies current headache, dizziness, nausea, vomiting, diarrhea, abdominal pain, chest pain, dyspnea, dyspnea on exertion. Patient appears nontoxic. Patient does appear anxious. Remaining ROS (-), patient denies any recent back pain, muscle weakness, numbness or tingling, dysuria or hematuria, constipation or diarrhea, or visual changes, or any other complaints. - Related Data Allergies Allergy/AdvReac Type Severity Reaction Status Date / Time No Known Allergies Allergy Verified 10/21/18 00:56 Past Medical History Past Medical History: No Reported History History of Any Multi-Drug Resistant Organisms: None Reported Past Surgical History: No Surgical Hx Reported Past Psychological History: No Psychological Hx Reported Smoking Status: Never smoker Past Alcohol Use History: Occasional Past Drug Use History: Marijuana Family Mental Health:sister anxiety and sometimes anxiety; whole family drinks alcohol Musculoskeletal Examination - Abnormal/Involuntary Movements: [none] Strength: [greater than antigravity (greater than/equal to 3/5) in all extremities:] Muscle Tone: [no impairment] Gait: [grossly normal Station: [grossly normal Mental Status Examination - General Appearance: [ casual, appears stated age Speech/Language: [ slow, hesitant, halting, expressive, soft] Attitude/Behavior: [cooperative] Mood: [ depressed, anxious, elated, irritable, angry, fearful, hopelessness, other] Affect: [full range, labile ] Orientation: [time, person, place situation] Thought Content: [wnl Risk Factors: [thoughts of suicidal-remains suicidal (ideation, plan) Perception: [ hallucinations (auditory and visual Thought Processes: [ concrete, circumstantial, tangential] Concentration/Attention Span: [wnl] [Per observation and interview with the patient] Recent Memory: [wnl] [ 3 out of 3 in 3 minutes] Remote Memory: [wnl] [past events, as related history] Intelligence: [ average] [based on history, based on vocabulary, syntax, grammar, and content] Judgement: [ fair] [per patient's behavior/history of present illness] Insight: [ fair] [understanding severity of illness/history of present illness] Admitting Diagnosis: [Major depressive disorder single episode severe in nature; alcohol use disorder severe in nature has now detoxed the last 3 days which is created auditory and visual hallucinations.] Patient Strengths - Personal Skills: [x] Achievements: [x] Steady employment/financial stability: [x] Housing stability: [x] Able to vocalize needs: [x] Values and traditions: [x] Motivation, determination, readiness for change: [x] Setting and pursuing goals, hopes, dreams, aspirations: [x] Resources - social, interpersonal, monetary: [x] Interpersonal relationships and supports available - family, relatives, friends: [x] Cultural/spiritual/sabianism and community involvement: [x] Other: [] Patient Limitations: [medication, non-compliance, pathological/unsupported environment, no interests, intellectual impairment, complicated medical illness, legal issues, lack of social supports, other] Initial Plan of Care: [He is admitted on a formal voluntary to [address] [place] [address]. He will be evaluated by medicine, psychiatry, nursing staff, social work and occupational therapy. He will be placed on 15 minute checks and usual protocol for chiang milieu therapeutic environment. He'll be included into going to groups and he needs to take his medication as ordered. He'll be started on Effexor 37.5 mg Xr, Lamictal 25 mg, naltrexone 50 mg AT BEDTIME.] 10/22/2018: increase effexor 75 mg xr; lamictal 75 mg po qhs; add invega 3mg po qhs for psychosis 15 minute checks and usual protocol for the unit. 10/24/2018: Increase invega 6 mg po qhs and 1 hour family meeting Estimated Length of Stay: [5 days] Initial Discharge Plan: [home,referred to therapist, Prognosis: [good] (1) Major depressive disorder Current Visit: Yes Status: Acute Priority: High Code(s): F32.9 - MAJOR DEPRESSIVE DISORDER, SINGLE EPISODE, UNSPECIFIED SNOMED Code(s): 213852261
[2018-10-25] MEDS: NALTREXONE HCL 50 MG TAB PO SCH (20:58)
[2018-10-25] MEDS: lamoTRIgine 100 MG TAB PO SCH (20:58)
[2018-10-25] MEDS: cloNIDine HCL 0.1 MG TAB PO SCH (20:59)
[2018-10-25] MEDS ORDERED: PALIPERIDONE 3 MG TAB.ER.24 PO SCH (21:00)
[2018-10-25] MEDS ORDERED: VENLAFAXINE HCL ER 75 MG CAP PO SCH (21:00)
[2018-10-26] MEDS: cloNIDine HCL 0.1 MG TAB PO SCH ×2 (08:43→20:08)
--- NOTE | 2018-10-26 12:02 | P.PN ---
Subjective Progress Note Date: 10/26/18 Principal diagnosis: Major depressive disorder single episode severe in nature; alcohol use disorder severe in nature has now detoxed the last 3 days which is created auditory and v isual hallucinations this is a pleasant 23-year-old single male who lives with his girlfriend and [facility]. He recently was on a trip on a cruise October 13 worry he drank alcohol excessively and has had problems withdrawn from the alcohol. He states she's always had depression and the alcohol binge did not help his overall mental status. He is actively working and his high school and college grades were A's in nature. 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 He is pleasant to talk to very good historian and unreliable He was hallucinating on the plan and psychosis. 10/26/2018: less fear and less ruminating, not suicidal Objective - Vital Signs Vital signs: Vital Signs Temp 98.5 F 10/26/18 06:19 Pulse 120 H 10/26/18 08:40 Resp 18 10/26/18 06:19 BP 126/76 10/26/18 08:40 Pulse Ox 98 10/24/18 03:20 Intake & Output 10/25/18 10/26/18 10/26/18 18:59 06:59 18:59 Weight 79.832 kg - Labs CBC & Chem 7: 10/21/18 02:15 10/23/18 09:08 Assessment and Plan Assessment: 23-year-old male with no past medical history presents today for chief complaint of anxiety and feeling as though he is going to . Patient states that he recently went on a cruise with friends to the [facility] and arrived home this past Saturday. He states that the entire time him and his friends were drinking heavily. He states when he got to [place] off of the cruise ship began having extreme anxiety. He states he feels like he is going to . He states he has intense anxiety, impeding doom and fear of and dying. He denies taking any drugs. Patient states the symptoms have persisted. Family member in the room father as well as girlfriend states that he appears paranoid. Patient denies any fever, night sweats, denies current headache, dizziness, nausea, vomiting, diarrhea, abdominal pain, chest pain, dyspnea, dyspnea on exertion. Patient appears nontoxic. Patient does appear anxious. Remaining ROS (-), patient denies any recent back pain, muscle weakness, numbness or tingling, dysuria or hematuria, constipation or diarrhea, or visual changes, or any other complaints. - Related Data Allergies Allergy/AdvReac Type Severity Reaction Status Date / Time No Known Allergies Allergy Verified 10/21/18 00:56 Past Medical History Past Medical History: No Reported History History of Any Multi-Drug Resistant Organisms: None Reported Past Surgical History: No Surgical Hx Reported Past Psychological History: No Psychological Hx Reported Smoking Status: Never smoker Past Alcohol Use History: Occasional Past Drug Use History: Marijuana Family Mental Health:sister anxiety and sometimes anxiety; whole family drinks alcohol Musculoskeletal Examination - Abnormal/Involuntary Movements: [none] Strength: [greater than antigravity (greater than/equal to 3/5) in all extre mities:] Muscle Tone: [no impairment] Gait: [grossly normal Station: [grossly normal Mental Status Examination - General Appearance: [ casual, appears stated age Speech/Language: [ slow, hesitant, halting, expressive, soft] Attitude/Behavior: [cooperative] Mood: [ depressed, anxious, elated, irritable, angry, fearful, hopelessness, other] Affect: [full range, labile ] Orientation: [time, person, place situation] Thought Content: [wnl Risk Factors: [thoughts of suicidal-remains suicidal (ideation, plan) Perception: [ hallucinations (auditory and visual Thought Processes: [ concrete, circumstantial, tangential] Concentration/Attention Span: [wnl] [Per observation and interview with the patient] Recent Memory: [wnl] [ 3 out of 3 in 3 minutes] Remote Memory: [wnl] [past events, as related history] Intelligence: [ average] [based on history, based on vocabulary, syntax, grammar, and content] Judgement: [ fair] [per patient's behavior/history of present illness] Insight: [ fair] [understanding severity of illness/history of present illness] Admitting Diagnosis: [Major depressive disorder single episode severe in nature; alcohol use disorder severe in nature has now detoxed the last 3 days which is created auditory and visual hallucinations.] Patient Strengths - Personal Skills: [x] Achievements: [x] Steady employment/financial stability: [x] Housing stability: [x] Able to vocalize needs: [x] Values and traditions: [x] Motivation, determination, readiness for change: [x] Setting and pursuing goals, hopes, dreams, aspirations: [x] Resources - social, interpersonal, monetary: [x] Interpersonal relationships and supports available - family, relatives, friends: [x] Cultural/spiritual/sabianist and community involvement: [x] Other: [] Patient Limitations: [medication, non-compliance, pathological/unsupported environment, no interests, intellectual impairment, complicated medical illness, legal issues, lack of social supports, other] Initial Plan of Care: [[facility] He will be evaluated by medicine, psychiatry, nursing staff, social work and occupational therapy. He will be placed on 15 minute checks and usual protocol for chiang milieu therapeutic environment. He'll be included into going to groups and he needs to take his medication as ordered. He'll be started on Effexor 37.5 mg Xr, Lamictal 25 mg, naltrexone 50 mg AT BEDTIME.] 10/22/2018: increase effexor 75 mg xr; lamictal 75 mg po qhs; add invega 3mg po qhs for psychosis 15 minute checks and usual protocol for the unit. 10/24/2018: Increase invega 6 mg po qhs and 1 hour family meeting 10/25/2018; increase invega 9 mg and increase effexor 225 mg XR 11/05/2018: Increase invega 12 mg and increase effexor 300 mg XR Estimated Length of Stay: [3 days] Initial Discharge Plan: [home,referred to therapist, Prognosis: [good] (1) Major depressive disorder Current Visit: Yes Status: Acute Priority: High Code(s): F32.9 - MAJOR DEPRESSIVE DISORDER, SINGLE EPISODE, UNSPECIFIED SNOMED Code(s): 560260248 Time with Patient: Less than 30
[2018-10-26] MEDS: LORazepam 1 MG TAB PO PRN (12:09)
[2018-10-26] MEDS: MAGNESIUM HYDROXIDE 2,400 MG/10 ML CUP PO PRN ×2 (12:09→20:54)
[2018-10-26] MEDS: lamoTRIgine 100 MG TAB PO SCH (20:07)
[2018-10-26] MEDS: PALIPERIDONE 6 MG TAB.ER.24 PO SCH (20:07)
[2018-10-26] MEDS: VENLAFAXINE HCL ER 150 MG CAP PO SCH (20:07)
[2018-10-26] MEDS: NALTREXONE HCL 50 MG TAB PO SCH (20:08)
[2018-10-27] MEDS: LORazepam 1 MG TAB PO PRN (07:14)
[2018-10-27] MEDS: cloNIDine HCL 0.1 MG TAB PO SCH (07:55)
--- NOTE | 2018-10-27 12:24 | P.PN ---
Subjective Progress Note Date: 10/27/18 Principal diagnosis: Major depressive disorder single episode severe in nature; alcohol use disorder severe in nature has now detoxed the last 3 days which is created auditory and v isual hallucinations this is a pleasant 23-year-old single male who lives with his girlfriend and [facility]. He recently was on a trip on a cruise October 13 worry he drank alcohol excessively and has had problems withdrawn from the alcohol. He states she's always had depression and the alcohol binge did not help his overall mental status. He is actively working and his high school and college grades were A's in nature. 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 He is pleasant to talk to very good historian and unreliable He was hallucinating on the plan and psychosis. 10/26/2018: less fear and less ruminating, not suicidal 10/27/2018: Less depressed and not suicidal; memory returning Objective - Vital Signs Vital signs: Vital Signs Temp 97.8 F 10/27/18 06:45 Pulse 107 H 10/27/18 07:56 Resp 18 10/27/18 07:56 BP 107/60 10/27/18 07:56 Pulse Ox 98 10/24/18 03:20 Intake & Output 10/26/18 10/27/18 10/27/18 18:59 06:59 18:59 Weight 79.832 kg - Labs CBC & Chem 7: 10/21/18 02:15 10/23/18 09:08 Assessment and Plan Assessment: 23-year-old male with no past medical history presents today for chief complaint of anxiety and feeling as though he is going to . Patient states that he recently went on a cruise with friends to the [facility] and arrived home this past Saturday. He states that the entire time him and his friends were drinking heavily. He states when he got to [place] off of the cruise ship began having extreme anxiety. He states he feels like he is going to . He states he has intense anxiety, impeding doom and fear of and dying. He denies taking any drugs. Patient states the symptoms have persisted. Family member in the room father as well as girlfriend states that he appears paranoid. Patient denies any fever, night sweats, denies current headache, dizziness, nausea, vomiting, diarrhea, abdominal pain, chest pain, dyspnea, dyspnea on exertion. Patient appears nontoxic. Patient does appear anxious. Remaining ROS (-), patient denies any recent back pain, muscle weakness, numbness or tingling, dysuria or hematuria, constipation or diarrhea, or visual changes, or any other complaints. - Related Data Allergies Allergy/AdvReac Type Severity Reaction Status Date / Time No Known Allergies Allergy Verified 10/21/18 00:56 Past Medical History Past Medical History: No Reported History History of Any Multi-Drug Resistant Organisms: None Reported Past Surgical History: No Surgical Hx Reported Past Psychological History: No Psychological Hx Reported Smoking Status: Never smoker Past Alcohol Use History: Occasional Past Drug Use History: Marijuana Family Mental Health:sister anxiety and sometimes anxiety; whole family drinks alcohol Musculoskeletal Examination - Abnormal/Involuntary Movements: [none] Strength: [greater than antigravity (greater than/equal to 3/5) in all extremities:] Muscle Tone: [no impairment] Gait: [grossly normal Station: [grossly normal Mental Status Examination - General Appearance: [ casual, appears stated age Speech/Language: [ slow, hesitant, halting, expressive, soft] Attitude/Behavior: [cooperative] Mood: [ depressed, anxious, elated, irritable, angry, fearful, hopelessness, other] Affect: [full range, labile ] Orientation: [time, person, place situation] Thought Content: [wnl Risk Factors: [thoughts of suicidal-remains suicidal (ideation, plan) Perception: [ hallucinations (auditory and visual Thought Processes: [ concrete, circumstantial, tangential] Concentration/Attention Span: [wnl] [Per observation and interview with the patient] Recent Memory: [wnl] [ 3 out of 3 in 3 minutes] Remote Memory: [wnl] [past events, as related history] Intelligence: [ average] [based on history, based on vocabulary, syntax, grammar, and content] Judgement: [ fair] [per patient's behavior/history of present illness] Insight: [ fair] [understanding severity of illness/history of present illness] Admitting Diagnosis: [Major depressive disorder single episode severe in nature; alcohol use disorder severe in nature has now detoxed the last 3 days which is created auditory and visual hallucinations.] Patient Strengths - Personal Skills: [x] Achievements: [x] Steady employment/financial stability: [x] Housing stability: [x] Able to vocalize needs: [x] Values and traditions: [x] Motivation, determination, readiness for change: [x] Setting and pursuing goals, hopes, dreams, aspirations: [x] Resources - social, interpersonal, monetary: [x] Interpersonal relationships and supports available - family, relatives, friends: [x] Cultural/spiritual/mandaeism and community involvement: [x] Other: [] Patient Limitations: [medication, non-compliance, pathological/unsupported environment, no interests, intellectual impairment, complicated medical illness, legal issues, lack of social supports, other] Initial Plan of Care: [He is admitted on a formal voluntary to 3 [facility]. He will be evaluated by medicine, psychiatry, nursing staff, social work and occupational therapy. He will be placed on 15 minute checks and usual protocol for chiang milieu therapeutic environment. He'll be included into going to groups and he needs to take his medication as ordered. He'll be started on Effexor 37.5 mg Xr, Lamictal 25 mg, naltrexone 50 mg AT BEDTIME.] 10/22/2018: increase effexor 75 mg xr; lamictal 75 mg po qhs; add invega 3mg po qhs for psychosis 15 minute checks and usual protocol for the unit. 10/24/2018: Increase invega 6 mg po qhs and 1 hour family meeting 10/25/2018; increase invega 9 mg and increase effexor 225 mg XR 10/26/2018: Increase invega 12 mg and increase effexor 300 mg XR 10/27/2018: Add claritan and keep the rest of medications at same; 15 minutes checks Estimated Length of Stay: [2 days] Initial Discharge Plan: [home,referred to therapist, Prognosis: [good] (1) Major depressive disorder Current Visit: Yes Status: Acute Priority: High Code(s): F32.9 - MAJOR DEPRESSIVE DISORDER, SINGLE EPISODE, UNSPECIFIED SNOMED Code(s): 989556901 Time with Patient: Less than 30
[2018-10-27] MEDS: LORATADINE 10 MG TAB PO SCH (20:58)
[2018-10-27] MEDS: lamoTRIgine 100 MG TAB PO SCH (20:58)
[2018-10-27] MEDS: cloNIDine HCL 0.2 MG TAB PO SCH (20:58)
[2018-10-27] MEDS: NALTREXONE HCL 50 MG TAB PO SCH (20:59)
[2018-10-27] MEDS: VENLAFAXINE HCL ER 150 MG CAP PO SCH (20:59)
[2018-10-27] MEDS: PALIPERIDONE 6 MG TAB.ER.24 PO SCH (20:59)
[2018-10-28] MEDS: LORazepam 1 MG TAB PO PRN (00:03)
[2018-10-28] MEDS: LORATADINE 10 MG TAB PO SCH ×2 (07:49→20:32)
[2018-10-28] MEDS: cloNIDine HCL 0.2 MG TAB PO SCH ×2 (07:50→20:33)
--- NOTE | 2018-10-28 11:14 | P.PN ---
Subjective Progress Note Date: 10/28/18 Principal diagnosis: Major depressive disorder single episode severe in nature; alcohol use disorder severe in nature has now detoxed the last 3 days which is created auditory and v isual hallucinations this is a pleasant 23-year-old single male who lives with his girlfriend and [facility]. He recently was on a trip on a cruise October 13 worry he drank alcohol excessively and has had problems withdrawn from the alcohol. He states she's always had depression and the alcohol binge did not help his overall mental status. He is actively working and his high school and college grades were A's in nature. 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 He is pleasant to talk to very good historian and unreliable He was hallucinating on the plan and psychosis. 10/26/2018: less fear and less ruminating, not suicidal 10/27/2018: Less depressed and not suicidal; memory returning 10/28/2017 paranoid of peer who is anabaptism and scares client. Objective - Vital Signs Vital signs: Vital Signs Temp 98.5 F 10/28/18 00:05 Pulse 125 H 10/28/18 07:50 Resp 18 10/28/18 00:05 BP 138/85 10/28/18 07:50 Pulse Ox 98 10/24/18 03:20 - Labs CBC & Chem 7: 10/21/18 02:15 10/23/18 09:08 Assessment and Plan Assessment: 23-year-old male with no past medical history presents today for chief complaint of anxiety and feeling as though he is going to . Patient states that he recently went on a cruise with friends to the [facility] and arrived home this past Saturday. He states that the entire time him and his friends were drinking heavily. He states when he got to [place] off of the cruise ship began having extreme anxiety. He states he feels like he is going to . He states he has intense anxiety, impeding doom and fear of and dying. He denies taking any drugs. Patient states the symptoms have persisted. Family member in the room father as well as girlfriend states that he appears paranoid. Patient denies any fever, night sweats, denies current headache, dizziness, nausea, v omiting, diarrhea, abdominal pain, chest pain, dyspnea, dyspnea on exertion. Patient appears nontoxic. Patient does appear anxious. Remaining ROS (-), patient denies any recent back pain, muscle weakness, numbness or tingling, dysuria or hematuria, constipation or diarrhea, or visual changes, or any other complaints. - Related Data Allergies Allergy/AdvReac Type Severity Reaction Status Date / Time No Known Allergies Allergy Verified 10/21/18 00:56 Past Medical History Past Medical History: No Reported History History of Any Multi-Drug Resistant Organisms: None Reported Past Surgical History: No Surgical Hx Reported Past Psychological History: No Psychological Hx Reported Smoking Status: Never smoker Past Alcohol Use History: Occasional Past Drug Use History: Marijuana Family Mental Health:sister anxiety and sometimes anxiety; whole family drinks alcohol Musculoskeletal Examination - Abnormal/Involuntary Movements: [none] Strength: [greater than antigravity (greater than/equal to 3/5) in all extremities:] Muscle Tone: [no impairment] Gait: [grossly normal Station: [grossly normal Mental Status Examination - General Appearance: [ casual, appears stated age Speech/Language: [ slow, hesitant, halting, expressive, soft] Attitude/Behavior: [cooperative] Mood: [ depressed, anxious, elated, irritable, angry, fearful, hopelessness, other] Affect: [full range, labile ] Orientation: [time, person, place situation] Thought Content: [wnl Risk Factors: [thoughts of suicidal-remains suicidal (ideation, plan) Perception: [ hallucinations (auditory and visual Thought Processes: [ concrete, circumstantial, tangential] Concentration/Attention Span: [wnl] [Per observation and interview with the patient] Recent Memory: [wnl] [ 3 out of 3 in 3 minutes] Remote Memory: [wnl] [past events, as related history] Intelligence: [ average] [based on history, based on vocabulary, syntax, grammar, and content] Judgement: [ fair] [per patient's behavior/history of present illness] Insight: [ fair] [understanding severity of illness/history of present illness] Admitting Diagnosis: [Major depressive disorder single episode severe in nature; alcohol use disorder severe in nature has now detoxed the last 3 days which is created auditory and visual hallucinations.] Patient Strengths - Personal Skills: [x] Achievements: [x] Steady employment/financial stability: [x] Housing stability: [x] Able to vocalize needs: [x] Values and traditions: [x] Motivation, determination, readiness for change: [x] Setting and pursuing goals, hopes, dreams, aspirations: [x] Resources - social, interpersonal, monetary: [x] Interpersonal relationships and supports available - family, relatives, friends: [x] Cultural/spiritual/anabaptism and community involvement: [x] Other: [] Patient Limitations: [medication, non-compliance, pathological/unsupported environment, no interests, intellectual impairment, complicated medical illness, legal issues, lack of social supports, other] Initial Plan of Care: [He is admitted on a formal voluntary to 3 [facility]. He will be evaluated by medicine, psychiatry, nursing staff, social work and occupational therapy. He will be placed on 15 minute checks and usual protocol for chiang milieu therapeutic environment. He'll be included into going to groups and he needs to take his medication as ordered. He'll be started on Effexor 37.5 mg Xr, Lamictal 25 mg, naltrexone 50 mg AT BEDTIME.] 10/22/2018: increase effexor 75 mg xr; lamictal 75 mg po qhs; add invega 3mg po qhs for psychosis 15 minute checks and usual protocol for the unit. 10/24/2018: Increase invega 6 mg po qhs and 1 hour family meeting 10/25/2018; increase invega 9 mg and increase effexor 225 mg XR 10/26/2018: Increase invega 12 mg and increase effexor 300 mg XR 10/27/2018: Add claritan and keep the rest of medications at same; 15 minutes checks 10/28/2018: maintain medications for adjustment and allow medications side effects to lessen in nature Estimated Length of Stay: [1 days]discharge 10/29/2018 Initial Discharge Plan: [home,referred to therapist, Prognosis: [good] (1) Major depressive disorder Current Visit: Yes Status: Acute Priority: High Code(s): F32.9 - MAJOR DEPRESSIVE DISORDER, SINGLE EPISODE, UNSPECIFIED SNOMED Code(s): 645023359 Time with Patient: Less than 30
[2018-10-28] MEDS: ACETAMINOPHEN TAB 325 MG TAB PO PRN (17:42)
[2018-10-28] MEDS: NALTREXONE HCL 50 MG TAB PO SCH (20:32)
[2018-10-28] MEDS: lamoTRIgine 100 MG TAB PO SCH (20:33)
[2018-10-28] MEDS: PALIPERIDONE 6 MG TAB.ER.24 PO SCH (20:33)
[2018-10-29 06:57] VITALS: TEMP 98.5
[2018-10-29] MEDS: LORATADINE 10 MG TAB PO SCH (08:22)
[2018-10-29] MEDS: cloNIDine HCL 0.2 MG TAB PO SCH (08:22)
[2018-10-29 08:25] VITALS: BP 125/64; PULSE 133; RESP 18
[2018-10-29] MEDS ORDERED: VENLAFAXINE HCL ER 150 MG CAP PO SCH (09:00)
--- NOTE | 2018-10-29 11:16 | P.DS ---
Providers Date of admission: 10/21/18 04:57 Expected date of discharge: 10/29/18 Attending physician: Alban Cartagena DO Consults: 10/21/18 05:23 Consult Physician Routine Consulting Provider: Cristhian Santiago Consult Reason/Comments: Medical H and P Do you want consulting provider notified?: Yes Primary care physician: Stated None - Discharge Diagnosis(es) (1) Major depressive disorder 23-year-old male with no past medical history presents today for chief complaint of anxiety and feeling as though he is going to . Patient states that he recently went on a cruise with friends to the [facility] and arrived home this past Saturday. He states that the entire time him and his friends were drinking heavily. He states when he got to [place] off of the cruise ship began having extreme anxiety. He states he feels like he is going to . He states he has intense anxiety, impeding doom and fear of and dying. He denies taking any drugs. Patient states the symptoms have persisted. Family member in the room father as well as girlfriend states that he appears paranoid. Patient denies any fever, night sweats, denies current headache, dizziness, nausea, vomiting, diarrhea, abdominal pain, chest pain, dyspnea, dyspnea on exertion. Patient appears nontoxic. Patient does appear anxious. Remaining ROS (-), patient denies any recent back pain, muscle weakness, numbness or tingling, dysuria or hematuria, constipation or diarrhea, or visual changes, or any other complaints. - Related Data Allergies Allergy/AdvReac Type Severity Reaction Status Date / Time No Known Allergies Allergy Verified 10/21/18 00:56 Past Medical History Past Medical History: No Reported History History of Any Multi-Drug Resistant Organisms: None Reported Past Surgical History: No Surgical Hx Reported Past Psychological History: No Psychological Hx Reported Smoking Status: Never smoker Past Alcohol Use History: Occasional Past Drug Use History: Marijuana Family Mental Health:sister anxiety and sometimes anxiety; whole family drinks alcohol Current Visit: Yes Status: Acute Priority: Low Hospital Course: Plan of Care: [He was admitted on a formal voluntary to 3 [facility]. He will be evaluated by medicine, psychiatry, nursing staff, social work and occupational therapy. He will be placed on 15 minute checks and usual protocol for chiang milieu therapeutic environment. He'll be included into going to groups and he needs to take his medication as ordered. He'll be started on Effexor 37.5 mg Xr, Lamictal 25 mg, naltrexone 50 mg AT BEDTIME.] 10/22/2018: increase effexor 75 mg xr; lamictal 75 mg po qhs; add invega 3mg po qhs for psychosis 15 minute checks and usual protocol for the unit. 10/24/2018: Increase invega 6 mg po qhs and 1 hour family meeting 10/25/2018; increase invega 9 mg and increase effexor 225 mg XR 10/26/2018: Increase invega 12 mg and increase effexor 300 mg XR 10/27/2018: Add claritan and keep the rest of medications at same; 15 minutes checks 10/28/2018: maintain medications for adjustment and allow medications side effects to lessen in nature Mental status examination at the time of discharge: The patient presents alert, pleasant, and cooperative. There calmly seated without any agitated behavior. [He] reports that [his] mood is good. Affect is congruent and euthymic. [He] deny having any suicidal or homicidal ideation intent or plan. [He] denies any auditory or visual hallucinations. There is no evidence of any delusional thought content. [He has] thought process is linear and goal-directed. [His] speech is fluent and nonpressured. [His] memory and concentration is grossly intact for the purposes of this session. Patient Condition at Discharge: Stable Plan - Discharge Summary Discharge Rx Participant: Yes New Discharge Prescriptions: New cloNIDine HCL [Catapres] 0.2 mg PO BID 30 Days #60 tab Loratadine [Claritin] 5 mg PO Q12HR tab Venlafaxine HCl ER [Effexor XR] 300 mg PO 0900 30 Days #30 cap.er.24h Paliperidone [Invega] 12 mg PO 2100 30 Days #60 tab.er.24 lamoTRIgine [LaMICtal] 200 mg PO 2099 30 Days #60 tab Naltrexone HCl [Revia] 50 mg PO 2100 30 Days #30 tab Discharge Medication List Loratadine [Claritin] 5 mg PO Q12HR tab 10/29/18 [Rx] Naltrexone HCl [Revia] 50 mg PO 2100 30 Days #30 tab 10/29/18 [Rx] Paliperidone [Invega] 12 mg PO 2100 30 Days #60 tab.er.24 10/29/18 [Rx] Venlafaxine HCl ER [Effexor XR] 300 mg PO 0900 30 Days #30 cap.er.24h 10/29/18 [Rx] cloNIDine HCL [Catapres] 0.2 mg PO BID 30 Days #60 tab 10/29/18 [Rx] lamoTRIgine [LaMICtal] 200 mg PO 2100 30 Days #60 tab 10/29/18 [Rx] Follow up Appointment(s)/Referral(s): [facility] [Outside] - 11/04/18 10:00 am ([facility] ) None,Stated [Primary Care Provider] - 1-2 days Patient Instructions/Handouts: Depression (DC), Anxiety (GEN) Activity/Diet/Wound Care/Special Instructions: Activity and Diet as tolerated. Avoid the use of street drugs and alcohol. Take all medications as prescribed, when you are in need of refills contact your medical doctor or psychiatrist. Please go to all scheduled outpatient appointments for aftercare treatment. If symptoms return or worsen you can call the crisis line @ and/or return to the nearest emergency room for evaluation. Discharge Disposition: HOME SELF-CARE
== END 2018-10-29 12:00 | disposition home or self-care (01) | DRG 880 ==
LOC: EC 00:40 → 3MHU 04:57
PROVIDERS: ADMIT Psychiatry & Neurology Psychiatry; ATTEND Psychiatry & Neurology Psychiatry
DX: F41.0 Panic disorder [episodic paroxysmal anxiety] (principal); F32.2 Major depressive disorder, single episode, severe without psychotic features; F10.10 Alcohol abuse, uncomplicated; F29 Unspecified psychosis not due to a substance or known physiological condition; I49.3 Ventricular premature depolarization; Z91.19 Patient's noncompliance with other medical treatment and regimen; Z82.49 Family history of ischemic heart disease and other diseases of the circulatory system; Z81.8 Family history of other mental and behavioral disorders; Z81.1 Family history of alcohol abuse and dependence; E80.6 Other disorders of bilirubin metabolism
CPT/HCPCS: 36415; 70553; 80053; 80061; 80306; 81003; 82075; 82550; 83036; 84436; 84443; 84479; 84484; 85025; 93005; 96360; 99285